=== PATIENT | female | born 1940 | race Caucasian/White ===

== ENCOUNTER 2021-10-06 05:49 | Inpatient (IN) | payer OTHER ==
[~2021-10-06] VITALS: Ht 165.1 cm; Wt 85.5 kg
[2021-10-06] MEDS ORDERED: ONDANSETRON 4MG INJ ONE (05:57)
[2021-10-06] MEDS ORDERED: ACETAMINOPHEN 325 MG/10.15ML UDCUP ONE (05:57)
[2021-10-06] MEDS ORDERED: ACETAMINOPHEN 650 MG/20.3 ML UDCUP ONE (05:57)
[2021-10-06] MEDS ORDERED: 0.9%NACL 1000ML 1,000 ML IV ONE ×3 (06:30→09:00)
[2021-10-06 06:31] LABS: BASOPHILS % (AUTO) 0.1 % (0.0-5.0); EOSINOPHILS % (AUTO) 1.5 % (0.0-8.0); HEMATOCRIT 41.9 % (36-48); MEAN CORPUSCULAR HEMOGLOBIN 31.7 pg (27.0-33.0); MEAN CORPUSCULAR HGB CONC 33.2 g/dL (32.0-36.0); MEAN CORPUSCULAR VOLUME 95.4 fL (79-99); MONOCYTES % (AUTO) 1.9 % (3.0-13.0); NEUTROPHILS % (AUTO) 90.8 % (40.0-77.0); PLATELET COUNT (AUTO) 59 K/uL (130-400); RED BLOOD CELL COUNT(AUTO) 4.39 MIL/uL (4.00-5.50); RED CELL DISTRIBUTION WIDTH 15.5 % (11.0-15.5); WHITE BLOOD COUNT (AUTO) 8.5 K/uL (4.8-10.8)
[2021-10-06 06:33] LABS: APPEARANCE,URINE CLEAR (CLEAR); BILIRUBIN,URINE NEGATIVE (NEGATIVE); COLOR,URINE YELLOW (YELLOW); GLUCOSE, URINE (UA) NEGATIVE (NEGATIVE); KETONES,URINE NEGATIVE (NEGATIVE); LEUKOCYTE ESTERASE ,URINE SMALL (NEGATIVE); NITRATE,URINE POSITIVE (NEGATIVE); OCCULT BLOOD,URINE MODERATE (NEGATIVE); PROTEIN,URINE 30 mg/dL (NEGATIVE); UROBILINOGEN,URINE 0.2 mg/dL (0.2-1.0)
[2021-10-06 06:55] LABS: CREATININE 1.3 mg/dL (0.5-1.5); POTASSIUM 4.1 mmol/L (3.5-5.1)
[2021-10-06 07:00] LABS: ALBUMIN 2.6 g/dL (3.5-5.0); BILIRUBIN,TOTAL 2.6 mg/dL (0.2-1.0); TOTAL PROTEIN, SERUM 5.7 g/dL (6.0-8.3)
[2021-10-06] MEDS ORDERED: CEFEPIME HCL 2 GM VIAL IVP SCH (07:00)
[2021-10-06 07:11] LABS: BACTERIA,URINE Few /HPF (None Seen); RBC,URINE 0-1 /HPF (0-1); WBC,URINE 51-100 /HPF (0-1)
[2021-10-06 07:12] LABS: SQUAMOUS EPITHELIAL CELL,UR Rare /HPF (0-2)
[2021-10-06] MEDS ORDERED: ACETAMINOPHEN 325 MG TAB PO PRN ×4 (09:00→12:00)
[2021-10-06] MEDS ORDERED: TRIAMCINOLONE 1% TP (09:38)
[2021-10-06] MEDS ORDERED: LEVO75CA5 PO ×2 (09:38→10:32)
[2021-10-06] MEDS ORDERED: ROSU5TAB12 PO (09:38)
[2021-10-06] MEDS ORDERED: FAMO20TA8 PO (09:38)
[2021-10-06] MEDS ORDERED: FOLIC ACID PO (10:32)
[2021-10-06] MEDS ORDERED: METH2.5T6 PO (10:32)
[2021-10-06] MEDS ORDERED: GABA-529 PO (10:32)
[2021-10-06] MEDS ORDERED: GABA300C PO (10:32)
[2021-10-06] MEDS ORDERED: CETI10TA57 PO (10:32)
[2021-10-06] MEDS ORDERED: CRAN250C2 PO (10:32)
[2021-10-06] MEDS ORDERED: FURO40TA5 PO (10:32)
[2021-10-06] MEDS ORDERED: LEVO75TA10 PO (10:32)
[2021-10-06] MEDS ORDERED: POTASSIUM CHLORIDE 10% ELIXIR 20 MEQ/15 ML UDCUP PO PRN (12:00)
[2021-10-06] MEDS ORDERED: KCL 20 MEQ ERTAB PO PRN (12:00)
[2021-10-06] MEDS ORDERED: DIPHENHYDRAMINE HCL 25 MG CAPSULE PO PRN (12:00)
[2021-10-06] MEDS ORDERED: MAG/ALUM/SIMETH 30 ML UDCUP PO PRN (12:00)
[2021-10-06] MEDS ORDERED: LACTULOSE 20 GM/30 ML UDCUP PO PRN (12:00)
[2021-10-06] MEDS ORDERED: POTASSIUM CHLORIDE 20MEQ/100ML 100 ML IV PRN ×2 (12:00)
[2021-10-06] MEDS ORDERED: ONDANSETRON 4MG INJ IV PRN (12:00)
[2021-10-06] MEDS ORDERED: DiphenhydrAMINE HCL 50 MG/ML VIAL IV PRN (12:00)
[2021-10-06] MEDS ORDERED: LIDOCAINE HCL-MPF 1% 2ML VIAL IV PRN ×2 (12:00)
[2021-10-06] MEDS ORDERED: METOCLOPRAMIDE 10 MG/2 ML VIAL IVP PRN (12:30)
[2021-10-06] MEDS: LEVOFLOXACIN 500 MG/D5W 100 ML 100 ML IV SCH (13:51)
[2021-10-06] MEDS: SOLU-MEDROL 40MG VIAL IVP SCH ×2 (13:51→21:09)
[2021-10-06 14:41] VITALS: BP 126/61
[2021-10-06 16:00] VITALS: BP 130/79
[2021-10-06] MEDS ORDERED: VERAPAMIL HCL 2.5 MG/ML VIAL IVP PRN (16:30)
[2021-10-06] MEDS ORDERED: FUROSEMIDE 40MG VIAL IV SCH ×2 (16:30)
[2021-10-06] MEDS ORDERED: IPRATROPIUM 0.5 MG/2.5 ML INH IH ONE (16:56)
[2021-10-06] MEDS ORDERED: IPRATROPIUM 0.5 MG/2.5 ML INH IH PRN ×2 (17:00)
[2021-10-06] MEDS ORDERED: KCL 20 MEQ ERTAB PO SCH (17:00)
[2021-10-06] MEDS: DILTIAZEM 60MG TAB PO SCH (17:08)
[2021-10-06 20:55] VITALS: BP 121/66
[2021-10-07] VITALS (7 sets, daily range): BP systolic 100–136; BP diastolic 53–73
[2021-10-07] MEDS: DILTIAZEM 60MG TAB PO SCH ×2 (00:20→06:06)
[2021-10-07] MEDS: SOLU-MEDROL 40MG VIAL IVP SCH (04:26)
[2021-10-07 05:28] LABS: HEMATOCRIT 43.2 % (36-48); MEAN CORPUSCULAR HEMOGLOBIN 31.5 pg (27.0-33.0); MEAN CORPUSCULAR HGB CONC 32.9 g/dL (32.0-36.0); MEAN CORPUSCULAR VOLUME 95.8 fL (79-99); RED BLOOD CELL COUNT(AUTO) 4.51 MIL/uL (4.00-5.50); RED CELL DISTRIBUTION WIDTH 15.5 % (11.0-15.5); WHITE BLOOD COUNT (AUTO) 15.1 K/uL (4.8-10.8)
[2021-10-07 05:50] LABS: CREATININE 1.1 mg/dL (0.5-1.5); POTASSIUM 4.5 mmol/L (3.5-5.1)
[2021-10-07] MEDS ORDERED: PREDNISONE 20 MG TABLET PO SCH (09:00)
[2021-10-07] MEDS: PANTOPRAZOLE 40 MG TAB DR PO SCH (10:56)
[2021-10-07] MEDS: DILTIAZEM 120MG SR CAP PO SCH (10:56)
[2021-10-07] MEDS: FOLIC ACID 1 MG TABLET PO SCH (10:56)
[2021-10-07] MEDS: ENOXAPARIN SODIUM 40 MG/0.4 ML SYRINGE SQ SCH (10:57)
[2021-10-07] MEDS: LEVOTHYROXINE 75 MCG TABLET PO SCH (10:57)
[2021-10-07] MEDS: LEVOFLOXACIN 500 MG/D5W 100 ML 100 ML IV SCH (12:33)
[2021-10-08 04:15] VITALS: BP 127/63
[2021-10-08 05:28] LABS: HEMATOCRIT 39.8 % (36-48); MEAN CORPUSCULAR HEMOGLOBIN 31.3 pg (27.0-33.0); MEAN CORPUSCULAR HGB CONC 32.7 g/dL (32.0-36.0); MEAN CORPUSCULAR VOLUME 95.7 fL (79-99); RED BLOOD CELL COUNT(AUTO) 4.16 MIL/uL (4.00-5.50); RED CELL DISTRIBUTION WIDTH 15.3 % (11.0-15.5); WHITE BLOOD COUNT (AUTO) 13.7 K/uL (4.8-10.8)
[2021-10-08 05:39] LABS: CREATININE 1.1 mg/dL (0.5-1.5); POTASSIUM 4.1 mmol/L (3.5-5.1)
[2021-10-08 08:00] VITALS: BP 141/92
[2021-10-08] MEDS: ENOXAPARIN SODIUM 40 MG/0.4 ML SYRINGE SQ SCH (09:00)
[2021-10-08] MEDS ORDERED: NON-FORMULARY MEDICATION 1 EACH (Levothyroxine Sodium (Levothyroxine) 75 MCG) PO SCH (09:00)
[2021-10-08] MEDS: DILTIAZEM 120MG SR CAP PO SCH (09:21)
[2021-10-08] MEDS: PREDNISONE 20 MG TABLET PO SCH (09:21)
[2021-10-08] MEDS: PANTOPRAZOLE 40 MG TAB DR PO SCH (09:21)
[2021-10-08] MEDS: FOLIC ACID 1 MG TABLET PO SCH (09:21)
[2021-10-08 12:00] VITALS: BP 127/84
[2021-10-08] MEDS: LEVOFLOXACIN 500 MG/D5W 100 ML 100 ML IV SCH (13:16)
[2021-10-08 16:00] VITALS: BP 124/67
[2021-10-08 20:00] VITALS: BP 132/68
[2021-10-09] VITALS: BP 132/76
[2021-10-09 04:33] VITALS: BP 124/74
[2021-10-09 05:43] LABS: HEMATOCRIT 40.2 % (36-48); MEAN CORPUSCULAR HEMOGLOBIN 30.8 pg (27.0-33.0); MEAN CORPUSCULAR HGB CONC 32.1 g/dL (32.0-36.0); MEAN CORPUSCULAR VOLUME 95.9 fL (79-99); RED BLOOD CELL COUNT(AUTO) 4.19 MIL/uL (4.00-5.50); RED CELL DISTRIBUTION WIDTH 15.3 % (11.0-15.5); WHITE BLOOD COUNT (AUTO) 11.2 K/uL (4.8-10.8)
[2021-10-09 06:00] LABS: CREATININE 1.1 mg/dL (0.5-1.5); POTASSIUM 4.7 mmol/L (3.5-5.1)
[2021-10-09] MEDS: FOLIC ACID 1 MG TABLET PO SCH (08:52)
[2021-10-09] MEDS: PANTOPRAZOLE 40 MG TAB DR PO SCH (08:52)
[2021-10-09] MEDS: LEVOTHYROXINE 75 MCG TABLET PO SCH (08:53)
[2021-10-09] MEDS: DILTIAZEM 120MG SR CAP PO SCH (08:54)
[2021-10-09] MEDS: PREDNISONE 20 MG TABLET PO SCH (08:54)
[2021-10-09 08:56] VITALS: BP 124/72
[2021-10-09] MEDS: ENOXAPARIN SODIUM 40 MG/0.4 ML SYRINGE SQ SCH (08:58)
[2021-10-09] MEDS ORDERED: PREDNISONE 20 MG TABLET PO SCH (09:54)
[2021-10-09 12:44] VITALS: BP 121/81
[2021-10-09] MEDS: LEVOFLOXACIN 500 MG/D5W 100 ML 100 ML IV SCH (13:15)
[2021-10-09] MEDS ORDERED: DILT-36 PO (13:31)
[2021-10-09] MEDS ORDERED: LEVO500T90 PO (13:31)
[2021-10-09] MEDS ORDERED: ASPI-891 PO (13:31)
[2021-10-09 17:49] VITALS: BP 148/84
== END 2021-10-09 19:10 | disposition home or self-care (01) | DRG 872 ==
LOC: EDH 05:49 → EDHIP 08:57 → 3AH 12:47
PROVIDERS: ADMIT Internal Medicine; ATTEND Internal Medicine
DX: A41.9 Sepsis, unspecified organism (principal); N39.0 Urinary tract infection, site not specified; D84.821 Immunodeficiency due to drugs; E27.40 Unspecified adrenocortical insufficiency; G72.0 Drug-induced myopathy; I13.0 Hypertensive heart and chronic kidney disease with heart failure and stage 1 through stage 4 chronic kidney disease, or unspecified chronic kidney disease; I50.32 Chronic diastolic (congestive) heart failure; I47.1 Supraventricular tachycardia; E03.9 Hypothyroidism, unspecified; E66.9 Obesity, unspecified; K76.0 Fatty (change of) liver, not elsewhere classified; N18.31 Chronic kidney disease, stage 3a; G62.0 Drug-induced polyneuropathy; T45.1X5A Adverse effect of antineoplastic and immunosuppressive drugs, initial encounter; L40.8 Other psoriasis; L40.50 Arthropathic psoriasis, unspecified; E86.0 Dehydration; E78.2 Mixed hyperlipidemia; Z20.822 Contact with and (suspected) exposure to COVID-19; E11.51 Type 2 diabetes mellitus with diabetic peripheral angiopathy without gangrene; E11.22 Type 2 diabetes mellitus with diabetic chronic kidney disease; T46.6X5A Adverse effect of antihyperlipidemic and antiarteriosclerotic drugs, initial encounter; I71.4 Abdominal aortic aneurysm, without rupture; Y92.89 Other specified places as the place of occurrence of the external cause; Z82.49 Family history of ischemic heart disease and other diseases of the circulatory system; Z90.49 Acquired absence of other specified parts of digestive tract; Z79.52 Long term (current) use of systemic steroids; Z68.30 Body mass index [BMI] 30.0-30.9, adult; Z79.899 Other long term (current) drug therapy; Z83.3 Family history of diabetes mellitus; Z85.3 Personal history of malignant neoplasm of breast; Z87.440 Personal history of urinary (tract) infections; Z90.12 Acquired absence of left breast and nipple; Z90.710 Acquired absence of both cervix and uterus; Z80.7 Family history of other malignant neoplasms of lymphoid, hematopoietic and related tissues; Z68.31 Body mass index [BMI] 31.0-31.9, adult
CPT/HCPCS: 36415; 71045; 80048; 80053; 81001; 82550; 83605; 84484; 85025; 85027; 87040; 87077; 87088; 87186; 87635; 87804; 93005; 93306; 93356; 94640; 94664; 97039; C9803; G0378; J0692; J1650; J1940; J1956; J2405; J2920; J7030